=== PATIENT | female | born 1965 ===

== ENCOUNTER 2016-06-09 07:06 | Emergency (ER) | payer BC ==
[2016-06-09 07:17] VITALS: BP 122/76
--- NOTE | 2016-06-09 07:24 | UC ---
Abdominal Pain Female HPI - HPI Summary HPI Summary: cramping abd pain x 4-5 days, worse this am. Now with diarrhea. No blood in the diarrhea. Has never had a colonoscopy. No fever. - History of Current Complaint Chief Complaint: UCAbdominalPain Stated Complaint: STOMACH COMPLAINT Time Seen by Provider: 06/09/16 07:23 Hx Obtained From: Patient Hx Last Menstrual Period: 2001 Onset/Duration: Gradual Onset, Lasting Days, Still Present Timing: Constant Severity Initially: Moderate Severity Currently: Moderate Pain Intensity: 0 Pain Scale Used: 0-10 Numeric Location: Discrete At: LLQ Radiates: No Character: Cramping Aggravating Factor(s): Nothing Alleviating Factor(s): Nothing Associated Signs and Symptoms: Positive: Diarrhea. Negative: Urinary Symptoms Allergies/Adverse Reactions: Allergies Allergy/AdvReac Type Severity Reaction Status Date / Time No Known Allergies Allergy Verified 06/09/16 07:17 Home Medications: Home Medications Gas X 1 dose PO BID PRN 06/09/16 [History Confirmed 06/09/16] Ibuprofen TAB* [Motrin TAB* 600 MG] 600 mg PO Q6H PRN 06/09/16 [History Confirmed 06/09/16] PMH/Surg Hx/FS Hx/Imm Hx Previously Healthy: Yes Endocrine History Of: Denies: Diabetes, Thyroid Disease Cardiovascular History Of: Denies: Cardiac Disorders, Hypertension Respiratory History Of: Denies: Asthma - Surgical History Surgical History: Yes Surgery Procedure, Year, and Place: hysterectomy. appendectomy 1969 - Family History Known Family History: Positive: Hypertension - Social History Occupation: Employed Full-time Alcohol Use: Occasionally Substance Use Type: None Smoking Status (MU): Never Smoked Tobacco Review of Systems Constitutional: Negative Skin: Negative Eyes: Negative ENT: Negative Respiratory: Negative Cardiovascular: Negative Gastrointestinal: Abdominal Pain, Diarrhea Genitourinary: Negative Motor: Negative Neurovascular: Negative Musculoskeletal: Negative Neurological: Negative Psychological: Negative All Other Systems Reviewed And Are Negative: Yes Physical Exam Triage Information Reviewed: Yes Appearance: Well-Nourished, Ill-Appearing, Pain Distress - mild Vital Signs: Initial Vital Signs Temp 98.1 F 06/09/16 07:10 Pulse 79 06/09/16 07:10 Resp 20 06/09/16 07:10 BP 122/76 06/09/16 07:10 Vital Signs Reviewed: Yes Eyes: Positive: Conjunctiva Clear ENT: Positive: Normal ENT inspection. Negative: Muffled/hoarse voice Neck: Positive: Supple, Nontender, No Lymphadenopathy Respiratory: Positive: Lungs clear, Normal breath sounds, No respiratory distress Cardiovascular: Positive: RRR, No Murmur, Pulses Normal, Brisk Capillary Refill Abdomen Description: Positive: No Organomegaly, Guarding - LLQ. Negative: Nontender - tender LLQ, Soft, CVA Tenderness (R), CVA Tenderness (L), Distended , Hepatomegaly, McBurney's Point Tenderness, Peritoneal Signs, Pulsatile Mass, Splenomegaly Bowel Sounds: Positive: Hypoactive Musculoskeletal: Positive: Strength Intact, ROM Intact Neurological: Positive: Alert, Muscle Tone Normal Psychological Exam: Normal Skin Exam: Normal Abd Pain Female Course/Dx - Course Course Of Treatment: Transfer to higher level of care for further evaluation of abd pain. Dr. Andrews in with a critical pt. Spoke with TIERRA Curry, charge nurse. [id number]. Pt signs AMA to go by private care. Ambulatory at [place]. Urine with 25wbc's, not sent for culture as pt is going to [facility] and they will repeat this. - Differential Dx/Diagnosis Differential Diagnosis: Bowel Obstruction, Diverticulitis, Urinary Tract Infection Provider Diagnoses: left lower quadrant abdominal pain - Physician Notification/Consults Time Discussed With Above Provider: 07:40 - Patricio RN, for Dr. Andrews, only provider, in with critical pt. Instructed by Provider To: MD Will See In ED Discharge - Discharge Plan Condition: Stable Disposition: AGAINST MEDICAL ADVICE Forms: *Work Release Referrals: Dana Elaine MD [Primary Care Provider] -
== END 2016-06-09 07:40 | disposition left against medical advice (07) ==
LOC: UCCORT 07:06
DX: R10.32 Left lower quadrant pain (principal); R19.7 Diarrhea, unspecified
CPT/HCPCS: 99212; G0463

== ENCOUNTER 2017-01-07 12:10 | Emergency (ER) | payer BC ==
[2017-01-07 14:08] VITALS: BP 117/69
--- NOTE | 2017-01-07 14:16 | UC ---
Skin Complaint HPI - HPI Summary HPI Summary: recent surgery on the left lower leg, was seen by surgeon and had stictches removed, site is puffy red and small amount of pus draining from wound per patient, not able to get any drainage from the wound today. - History of Current Complaint Chief Complaint: UCSkin Time Seen by Provider: 01/07/17 14:04 Stated Complaint: SKIN CONCERN Hx Obtained From: Patient Hx Last Menstrual Period: 2001 ?: No Onset/Duration: Sudden Onset, Lasting Days Skin Exposure Onset/Duration: Days Ago Timing: Constant Onset Severity: Mild Current Severity: Mild Location: Discrete Character: Swelling, Redness, Raised - Allergy/Home Medications Allergies/Adverse Reactions: Allergies Allergy/AdvReac Type Severity Reaction Status Date / Time No Known Allergies Allergy Verified 01/07/17 14:01 Review of Systems Constitutional: Negative Skin: Other - incision with redness Eyes: Negative ENT: Negative Respiratory: Negative Cardiovascular: Negative Gastrointestinal: Negative Genitourinary: Negative Motor: Negative Neurovascular: Negative Musculoskeletal: Negative Neurological: Negative Psychological: Negative Is Patient Immunocompromised?: No All Other Systems Reviewed And Are Negative: Yes PMH/Surg Hx/FS Hx/Imm Hx Previously Healthy: Yes - Surgical History Surgical History: Yes Surgery Procedure, Year, and Place: hysterectomy. appendectomy 1970. 12/20/16- Mohs surgeryx2 - Family History Known Family History: Positive: None, Hypertension - Social History Alcohol Use: Rare Substance Use Type: None Smoking Status (MU): Never Smoked Tobacco - Immunization History Most Recent Influenza Vaccination: NOT YET 2017 Physical Exam Triage Information Reviewed: Yes Appearance: Well-Appearing, Well-Nourished, Pain Distress Vital Signs: Initial Vital Signs Temp 99 F 01/07/17 14:01 Pulse 82 01/07/17 14:01 Resp 18 01/07/17 14:01 BP 117/69 01/07/17 14:01 Pulse Ox 100 01/07/17 14:01 Vital Signs Reviewed: No Eye Exam: Normal Eyes: Positive: Conjunctiva Clear ENT Exam: Normal Dental Exam: Normal Neck exam: Normal Respiratory Exam: Normal Cardiovascular Exam: Normal Abdominal Exam: Normal Musculoskeletal Exam: Normal Neurological Exam: Normal Psychological Exam: Normal Skin: Positive: significant lesion(s) - large surgical inscions, top appears with slight dehiscence, slough in wound bed, periwound swollen and red, lower half od incision is healing well. Course/Dx - Course Course Of Treatment: hx obtained, exam performed ,meds reviewed, abx prescribed and recommend follow up with the surgeon. - Differential Diagnoses - Skin Complaint Differential Diagnoses: Abscess, Cellulitis, Contact Dermatitis, MRSA, Urticaria - Diagnoses Provider Diagnoses: surgical site infection of left leg Discharge - Discharge Plan Condition: Stable Disposition: HOME Prescriptions: Cephalexin CAP* [Keflex CAP*] 500 mg PO TID #21 cap Patient Education Materials: Wound Infection (ED) Referrals: Dana Elaine MD [Medical Doctor] - Additional Instructions: 1. take the medication as prescribed. 2. soak in water soapy water twice a day for the next 4-5 days. 3. keep the site clean and ry 4. If not improving in the next 48 hours, please follow up with the surgeon.
== END 2017-01-07 14:28 | disposition home or self-care (01) ==
LOC: UCCORT 12:10
DX: T81.4XXA Infection following a procedure, initial encounter (principal); X58.XXXA Exposure to other specified factors, initial encounter
CPT/HCPCS: 99212; G0463

== ENCOUNTER 2018-10-18 07:01 | Emergency (ER) | payer BC ==
[2018-10-18 07:27] VITALS: BP 137/76
--- NOTE | 2018-10-18 07:44 | ED ---
Throat Pain/Nasal Congestion - HPI Summary HPI Summary: 53 yr old female with the complaint of sore throat. Onset four days ago. No Fever. No runny nose, no coughing. She has had some voice hoarseness. No drooling or trouble swallowing. Her symptoms are moderate. 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 - History of Current Complaint Chief Complaint: UCGeneralIllness Time Seen by Provider: 10/18/18 07:30 - Allergies/Home Medications Allergies/Adverse Reactions: Allergies Allergy/AdvReac Type Severity Reaction Status Date / Time No Known Allergies Allergy Verified 10/18/18 07:23 Home Medications: Home Medications Estradiol 0.025 MG PATCH (NF) 0.5 mg TRANSDERM SEE INSTRUCTIONS 10/18/18 [ History Confirmed 10/18/18] Ibuprofen TAB* [Advil TAB*] 400 mg PO Q6H PRN 10/18/18 [History Confirmed ] Lidocaine 2% VISCOUS* [Xylocaine 2% Viscous*] 15 ml SWISH SPIT Q4H PRN 10/18/18 [History Confirmed 10/18/18] PMH/Surg Hx/FS Hx/Imm Hx Endocrine/Hematology History: Denies: Hx Diabetes, Hx Thyroid Disease Cardiovascular History: Denies: Hx Hypertension Respiratory History: Denies: Hx Asthma - Cancer History Cancer Type, Location and Year: Skin cancer October 2016 - Surgical History Surgery Procedure, Year, and Place: hysterectomy. appendectomy 1969. 12/20/16- Mohs surgeryx2 Infectious Disease History: No Infectious Disease History: Denies: Traveled Outside the [place] in Last 30 Days - Family History Known Family History: Positive: None, Hypertension - Social History Occupation: Employed Full-time Alcohol Use: Occasionally Substance Use Type: Reports: None Smoking Status (MU): Never Smoked Tobacco Review of Systems Constitutional: Negative Positive: Sore Throat All Other Systems Reviewed And Are Negative: Yes Physical Exam Triage Information Reviewed: Yes Vital Signs On Initial Exam: Initial Vitals Temp Pulse Resp BP Pulse Ox 97.3 F 79 15 137/76 100 10/18/18 07:21 10/18/18 07:21 10/18/18 07:21 10/18/18 07:21 10/18/18 07:21 Vital Signs Reviewed: Yes Appearance: Positive: Well-Appearing, No Pain Distress Skin: Positive: Warm, Skin Color Reflects Adequate Perfusion Head/Face: Positive: Normal Head/Face Inspection Eyes: Positive: EOMI, MAGGIE ENT: Positive: Pharyngeal erythema, Hoarse voice, Uvula midline. Negative: Nasal congestion, Nasal drainage, Tonsillar swelling, Tonsillar exudate, Trismus , Muffled voice Neck: Positive: Nontender Respiratory/Lung Sounds: Positive: Clear to Auscultation, Breath Sounds Present Cardiovascular: Positive: RRR. Negative: Murmur Abdomen Description: Negative: Distended Musculoskeletal: Positive: Strength/ROM Intact Neurological: Positive: Sensory/Motor Intact, Alert, Oriented to Person Place, Time, CN Intact II-III, Normal Gait, Speech Normal Psychiatric: Positive: Normal Diagnostics - Vital Signs Vital Signs Temp Pulse Resp BP Pulse Ox 10/18/18 07:21 97.3 F 79 15 137/76 100 - Laboratory Lab Statement: Any lab studies that have been ordered have been reviewed, and results considered in the medical decision making process. EENT Course/Dx - Course Course Of Treatment: 53 yr old with hoarse voice, sore throat. Rapid strep negative. WIll give steroids for her laryngitis. - Diagnoses Provider Diagnoses: Laryngitis, Upper respiratory infection Discharge - Sign-Out/Discharge Documenting (check all that apply): Patient Departure All imaging exams completed and their final reports reviewed: No Studies - Discharge Plan Condition: Good Disposition: HOME Prescriptions: predniSONE TAB* [Deltasone 20 MG TAB*] 20 mg PO DAILY #4 tab Patient Education Materials: Laryngitis (ED), Upper Respiratory Infection (ED) Forms: *Work Release Referrals: Maryanne Estrella MD [Primary Care Provider] - 3 Days - Billing Disposition and Condition Condition: GOOD Disposition: Home
== END 2018-10-18 08:10 | disposition home or self-care (01) ==
LOC: UCCORT 07:01
DX: J04.0 Acute laryngitis (principal); J06.9 Acute upper respiratory infection, unspecified; Z85.828 Personal history of other malignant neoplasm of skin
CPT/HCPCS: 87651; 99212; G0463